=== PATIENT | female | born 1950 | race Caucasian/White ===

== ENCOUNTER 2019-02-25 07:45 | Inpatient (IN) | payer OTHER ==
[2019-02-25 08:19] LABS: Arterial Blood Carboxyhemoglob 1.5 % (0-1.5); Blood O2 Saturation 99.3 % (92-98.5)
[2019-02-25] MEDS ORDERED: D5.45NS W/KCL 20MEQ 1,000 ML IV ONE (08:22)
[2019-02-25] MEDS ORDERED: PROPOFOL 1,000 MG/100 ML VIAL IV ONE (08:22)
[2019-02-25] MEDS ORDERED: LEVALBUTEROL 1.25 MG/3 ML NEB ONE (08:24)
[2019-02-25 08:33] LABS: Absolute Lymphocytes (CBC) 2.3 K/uL (0.7-4.9); Absolute Neutrophil 11.2 K/uL (1.8-8.0); Basophils % 0.7 % (0-1.3); Eosinophils % 2.5 % (0-4.4); Hematocrit 35.2 % (36.0-45.0); Lymphocytes % 15.5 % (15.3-44.8); MPV 9.6 fL (7.6-11.3); Monocytes % 6.7 % (3.3-12.3); RBC Red Blood Cell Count 3.68 M/uL (3.86-4.86)
[2019-02-25 08:48] LABS: BUN Blood Urea Nitrogen 15 mg/dL (7-18); Glucose Level 126 mg/dL (74-106); NT PRO-BNP 2119 pg/mL (<125); Potassium 3.7 mmol/L (3.5-5.1); Sodium Level 143 mmol/L (136-145); Troponin (Emerg Dept Use Only) 0.04 ng/mL (0.0-0.045)
[2019-02-25 08:49] LABS: Bicarbonate 43 mmol/L (21-32)
--- NOTE | 2019-02-25 08:53 | RAD REPORT ---
EXAM DESCRIPTION: RAD - Chest Single View - 02/25/2019 8:26 am CLINICAL HISTORY: check tube placement Chest pain. COMPARISON: Chest Pa And Lat (2 Views) dated 01/12/2017; CHEST PA AND LAT 2 VIEW dated 07/29/2015; CONI ST PA AND LAT 2 VIEW dated 07/15/2014; CHEST SINGLE VIEW dated 05/16/2014 FINDINGS: Portable technique limits examination quality. Tip of the ET tube is above the pallavi. Enteric tube descends into stomach. Moderate bilateral pulmon rinku opacities are present likely representing pulmonary edema or pneumonia. The heart is mildly enlar ged in size. Small pleural effusions.
[2019-02-25 09:04] LABS: Protime INR 0.89
[2019-02-25] MEDS ORDERED: METHYLPREDNISOLONE 125 MG INJ ONE (09:22)
[2019-02-25] MEDS ORDERED: CEFTRIAXONE/SWI 1gm 1 GM/10 ML SYR ONE (09:22)
--- NOTE | 2019-02-25 09:43 | EDPHYS ---
Physician Documentation [facility] Name: Carmencita Meeks Age: 68 yrs Sex: Female : 1950 Arrival Date: 02/25/2019 Time: 07:54 Bed 3 Private MD: ED Physician Tam Bauman HPI: 02/25 08:07 This 68 yrs old Female presents to ER via Unassigned with complaints of rn trouble breathing. 08:07 The patient has shortness of breath at rest. Onset: The symptoms/episode began/occurred rn last night. Duration: The symptoms are continuous. The patient's shortness of breath is aggravated by nothing, is alleviated by nothing. Associated signs and symptoms:. Pt intubated so history from EMS and , reports a few days of worsening sob, cough, breathing treatments not helping, became more obtunded this AM, EMS arrived, unresponsive, and intubated at scene, given versed/fentanyl. also states blood sugar dropping over night, down to 57, but now normal.. Historical: - Allergies: 09:07 Ciprofloxacin; hb 09:07 Ciprofloxacin HCl; hb 09:07 Codeine; hb 09:07 TETRACYCLINES; hb - Home Meds: 10:02 HOME 02 2LNC [Active]; nicotine 14 mg/24 hr TD pt24 1 patch once daily [Active]; hb Brovana 15 mcg/2 mL inhalation nebu 2 mL 2 times per day [Active]; Lonhal 25mcg BID [Active]; ipratropium-albuterol 0.5 mg-3 mg(2.5 mg base)/3 mL Inhl nebu 3 mL 4 times per day [Active]; Ventolin Rotahaler/Rotacaps Inhl [Active]; furosemide 40 mg Oral tab 1 tab once daily [Active]; Acetazolamide Oral [Active]; duloxetine 60 mg oral cpDR 1 cap once daily [Active]; Tresiba FlexTouch U-100 100 unit/mL (3 mL) subcutaneous inpn [Active]; Novolog 100 unit/mL Sub-Q soln before meals [Active]; promethazine 25 mg Oral tab as needed [Active]; MS Contin 60 mg Oral TbER 1 tab every 8 hours [Active]; baclofen 10 mg Oral tab nightly [Active]; Amitiza 24 mcg oral cap nightly [Active]; Simbrinza 1-0.2 % ophthalmic drps 1 drop twice a day [Active]; Restasis 0.05 % ophthalmic dpet 1 drop 2 times per day [Active]; Prolia 60 mg/mL subcutaneous syrg 1 mL every 6 mo [Active]; Q-Tussin 100 mg/5 mL oral liqd [Active]; Citracal Oral [Active]; Afrin Sinus (oxymetazoline) 0.05 % nasal spry [Active]; Flonase 50 mcg/actuation Nasal spsn [Active]; methylprednisolone 8 mg Oral tab 1 tab once daily [Active]; - PMHx: 10:03 Diabetes - IDDM; COPD; hb - PSHx: 10:02 BUNION - BILATERAL; CATARACTS; Hysterectomy; Appendectomy; Cholecystectomy; hb 11:55 Mastectomy; hb - Immunization history:: Adult Immunizations up to date. - Family history:: not pertinent. - Social history:: Smoking status: Patient/guardian denies using tobacco. - Ebola Screening: : No symptoms or risks identified at this time. - Hospitalizations: : No recent hospitalization is reported. ROS: 08:07 Unable to obtain ROS due to obtunded state, patient is on ventilator. rn Exam: 08:07 Constitutional: Thin female, intubated, + gag reflex and minimally responsive to rn painful stimuli. Head/Face: Normocephalic, atraumatic. ENT: dry MM, no oral swelling, intubated Cardiovascular: + loud systolic murmur, regular rhythm and rate Respiratory: Coarse bilateral breath sounds, with exp wheezing Abdomen/GI: soft, non-distended MS/ Extremity: Pulses equal, no cyanosis. Neurovascular intact. Full, normal range of motion. Equal circumference. Neuro: GCS3, intubated 09:37 ECG was reviewed by the Attending Physician. rn Vital Signs: 07:56 BP 180 / 83; Pulse 90; Pulse Ox 80% on 100% FiO2 ETT vent; hb 08:30 BP 140 / 106; Pulse 81; Resp 18; Pulse Ox 100% on 50% FiO2 ETT vent; hb 08:55 Weight 45.36 kg (R); hb 09:26 Temp 96.9(C); hb 10:02 BP 128 / 73; Pulse 78 MON; Resp 18; Temp 96.5(C); Pulse Ox 100% on 50% FiO2 ETT vent; sg 10:45 BP 132 / 62; Pulse 80; Resp 18; Pulse Ox 100% on 50% FiO2 ETT vent; hb 11:31 BP 131 / 55; Pulse 83 MON; Resp 14; Temp 98.8(C); Pulse Ox 100% on 45% FiO2 ETT vent; sg 12:06 BP 107 / 71; Pulse 97; Resp 18; Temp 99.6(C); Pulse Ox 100% on 50% FiO2 ETT vent; hb Ventilator: 09:30 Fi02: 50%; Rate: 18min; T.V.: 450ml; Peep: 5cm; ET tube: 6.5 mm (Oral); hb MDM: 08:03 Patient medically screened. rn 09:40 Differential diagnosis: Chronic Obstructive Pulmonary Disease Myocardial Infarction rn pneumonia, Pneumothorax pulmonary edema, Sepsis. Data reviewed: vital signs, nurses notes, lab test result(s), EKG, radiologic studies, plain films, and as a result, I will admit patient. Counseling: I had a detailed discussion with the patient and/or guardian regarding: the historical points, exam findings, and any diagnostic results supporting the discharge/admit diagnosis, lab results, radiology results, the need for further work-up and treatment in the hospital. Response to treatment: the patient's symptoms have mildly improved after treatment. Admission orders: after a detailed discussion of the patient's condition and case, the admit orders are written by me. ED course: Admitted to Lisette Steiner for respiratory failure and possible pneumonia.. 02/25 08:04 Order name: Blood Culture Adult (2) rn 02/25 08:04 Order name: BMP; Complete Time: 08:50 rn 02/25 08:04 Order name: CBC with Diff; Complete Time: 08:50 rn 02/25 08:04 Order name: NT PRO-BNP; Complete Time: 08:50 rn 02/25 08:04 Order name: PT-INR; Complete Time: 09:38 rn 02/25 08:04 Order name: Ptt, Activated; Complete Time: 09:38 rn 02/25 08:03 Order name: CXR XRAY; Complete Time: 08:58 bd 02/25 08:04 Order name: Troponin (emerg Dept Use Only); Complete Time: 08:50 rn 02/25 08:04 Order name: ABG; Complete Time: 11:04 rn 02/25 08:06 Order name: CT Head Brain wo Cont; Complete Time: 09:56 rn 02/25 08:07 Order name: Glucose, Ancillary Testing; Complete Time: 08:50 EDMS 02/25 08:04 Order name: EKG; Complete Time: 08:05 rn 02/25 08:04 Order name: Cardiac monitoring; Complete Time: 08:30 rn 02/25 08:04 Order name: EKG - Nurse/Tech; Complete Time: 08:30 rn 02/25 08:04 Order name: IV Saline Lock; Complete Time: 08:30 rn 02/25 08:04 Order name: Labs collected and sent; Complete Time: 08:30 rn 02/25 08:04 Order name: O2 Per Protocol; Complete Time: 08:30 rn 02/25 08:04 Order name: O2 Sat Monitoring; Complete Time: 08:30 rn EC:37 Rate is 100 beats/min. Rhythm is irregularly irregular. Right axis deviation noted. QRS rn is positive in lead aVF and negative in lead I. QRS interval is normal. QT interval is normal. No Q waves. T waves are Normal. No ST changes noted. Clinical impression: Atrial Fibrillation. Interpreted by me. Reviewed by me. Administered Medications: 08:05 Drug: Versed 3 mg Route: IM; Site: left vastus lateralis; hb 08:40 Follow up: Response: No adverse reaction hb 08:07 Drug: Rocuronium 50 mg Route: IVP; Site: right antecubital; hb 08:40 Follow up: Response: No adverse reaction hb 08:12 Drug: Propofol 5 mcg/kg/min Route: IV; Rate: calculated rate; Site: right antecubital; hb 12:30 Follow up: Response: No adverse reaction; IV Status: Infusion continued upon admission; hb IV Intake: 21ml 08:20 Drug: D5-1/2 NS with KCl 20 mEq/L 1000 ml Route: IV; Rate: 100 ml/hr; Site: right hand; hb 12:30 Follow up: Response: No adverse reaction; IV Status: Infusion continued upon admission; hb IV Intake: 420ml 08:20 Drug: Xopenex (3) 1.25 mg Route: Inhalation; hb 09:10 Follow up: Response: No adverse reaction hb 09:20 Drug: SOLU-Medrol 125 mg Route: IVP; Site: right antecubital; hb 10:15 Follow up: Response: No adverse reaction hb 09:46 Drug: Rocephin - (cefTRIAXone) 1 grams Route: IVPB; Infused Over: 30 mins; Site: right hb hand; 10:30 Follow up: Response: No adverse reaction; IV Status: Completed infusion; IV Intake: 50mlhb 10:12 Drug: AZITHromycin 500 mg Route: IVPB; Infused Over: 1 hrs; Site: right hand; sg 11:15 Follow up: Response: No adverse reaction; IV Status: Completed infusion; IV Intake: hb 250ml Disposition: 09:40 Critical Care:. rn Disposition: 02/25/19 09:42 Hospitalization ordered by Maged Steiner for Inpatient Admission. Preliminary diagnosis are Acute respiratory failure with hypercapnia, Pneumonia, Chronic obstructive pulmonary disease with (acute) exacerbation, Hypothermia. - Bed requested for Intensive Care Unit. - Status is Inpatient Admission. hb - Condition is Fair. - Problem is new. - Symptoms have improved. UTI on Admission? No Critical care time excluding procedures: :40 Critical care time: Bedside Care: 25 minutes, Consultation: 3 minutes, Family rn Intervention: 5 minutes. Total time: 33 minutes Signatures: Dispatcher [employer] EDKY Panchito Cleveland RN RN Tam Bauman MD MD rn Smirch, Shelby, RN RN Monet Chambers RN RN Corrections: (The following items were deleted from the chart) 08:27 08:05 Chest Single View+RAD.RAD.BRZ ordered. [facility] EDKY 09:42 09:42 Hospitalization Ordered by Maged Steiner MD for Inpatient Admission. Preliminary rn diagnosis is Acute respiratory failure with hypercapnia; Pneumonia; Chronic obstructive pulmonary disease with (acute) exacerbation. Bed requested for Intensive Care Unit. Status is Inpatient Admission. Condition is Fair. Problem is new. Symptoms have improved. UTI on Admission? No. rn 11:58 09:42 02/25/2019 09:42 Hospitalization Ordered by Maged Steiner MD for Inpatient ss Admission. Preliminary diagnosis is Acute respiratory failure with hypercapnia; Pneumonia; Chronic obstructive pulmonary disease with (acute) exacerbation; Hypothermia. Bed requested for Intensive Care Unit. Status is Inpatient Admission. Condition is Fair. Problem is new. Symptoms have improved. UTI on Admission? No. rn 12:43 11:58 02/25/2019 09:42 Hospitalization Ordered by Maged Steiner MD for Inpatient Admission. Preliminary diagnosis is Acute respiratory failure with hypercapnia; Pneumonia; Chronic obstructive pulmonary disease with (acute) exacerbation; Hypothermia. Bed requested for Intensive Care Unit. Status is Inpatient Admission. Condition is Fair. Problem is new. Symptoms have improved. UTI on Admission? No. ss
--- NOTE | 2019-02-25 09:43 | ER ---
Nurse's Notes [facility] Name: Carmencita Meeks Age: 68 yrs Sex: Female : 1950 Arrival Date: 02/25/2019 Time: 07:54 Bed 3 Private MD: Diagnosis: Acute respiratory failure with hypercapnia;Pneumonia;Chronic obstructive pulmonary disease with (acute) exacerbation;Hypothermia Presentation: 02/25 07:56 Presenting complaint: EMS states: called out difficulty breathing, on scene pt hb was lethargic, R40s, SpO2 70s, ETCO2 100. PIV 22 right hand, RSI: Fentanyl 100 mcg, Versed 4 mg, ETT 6.5, 21 at the lip. Transition of care: patient was not received from another setting of care. Onset of symptoms was February 25, 2019. Risk Assessment: Do you want to hurt yourself or someone else? Patient reports no desire to harm self or others. 07:56 Method Of Arrival: EMS: [facility] hb 07:56 Acuity: MARTHA 1 hb 08:00 Care prior to arrival: Assisted ventilation, Oral intubation, OGT 12F. hb 08:15 Initial Sepsis Screen: Does the patient meet any 2 criteria? No. Patient's initial hb sepsis screen is negative. Does the patient have a suspected source of infection? Yes: Productive cough/pneumonia. Historical: - Allergies: 09:07 Ciprofloxacin; hb 09:07 Ciprofloxacin HCl; hb 09:07 Codeine; hb 09:07 TETRACYCLINES; hb - Home Meds: 10:02 HOME 02 2LNC [Active]; nicotine 14 mg/24 hr TD pt24 1 patch once daily [Active]; hb Brovana 15 mcg/2 mL inhalation nebu 2 mL 2 times per day [Active]; Lonhal 25mcg BID [Active]; ipratropium-albuterol 0.5 mg-3 mg(2.5 mg base)/3 mL Inhl nebu 3 mL 4 times per day [Active]; Ventolin Rotahaler/Rotacaps Inhl [Active]; furosemide 40 mg Oral tab 1 tab once daily [Active]; Acetazolamide Oral [Active]; duloxetine 60 mg oral cpDR 1 cap once daily [Active]; Tresiba FlexTouch U-100 100 unit/mL (3 mL) subcutaneous inpn [Active]; Novolog 100 unit/mL Sub-Q soln before meals [Active]; promethazine 25 mg Oral tab as needed [Active]; MS Contin 60 mg Oral TbER 1 tab every 8 hours [Active]; baclofen 10 mg Oral tab nightly [Active]; Amitiza 24 mcg oral cap nightly [Active]; Simbrinza 1-0.2 % ophthalmic drps 1 drop twice a day [Active]; Restasis 0.05 % ophthalmic dpet 1 drop 2 times per day [Active]; Prolia 60 mg/mL subcutaneous syrg 1 mL every 6 mo [Active]; Q-Tussin 100 mg/5 mL oral liqd [Active]; Citracal Oral [Active]; Afrin Sinus (oxymetazoline) 0.05 % nasal spry [Active]; Flonase 50 mcg/actuation Nasal spsn [Active]; methylprednisolone 8 mg Oral tab 1 tab once daily [Active]; - PMHx: 10:03 Diabetes - IDDM; COPD; hb - PSHx: 10:02 BUNION - BILATERAL; CATARACTS; Hysterectomy; Appendectomy; Cholecystectomy; hb 11:55 Mastectomy; hb - Immunization history:: Adult Immunizations up to date. - Family history:: not pertinent. - Social history:: Smoking status: Patient/guardian denies using tobacco. - Ebola Screening: : No symptoms or risks identified at this time. - Hospitalizations: : No recent hospitalization is reported. Screenin:56 Abuse screen: NO S/S ABUSE. Nutritional screening: No deficits noted. Tuberculosis hb screening: No symptoms or risk factors identified. Fall Risk Total Barrera Fall Scale indicates High Risk Score (45 or more points). Fall prevention measures have been instituted. Side Rails Up X 2 Frequent Obs/Assessments Occuring Family Present and informed to notify staff if the need to leave the bedside As available patient and family educated on Fall Prevention Program and Strategies. Assessment: 08:05 General: Appears ill, Behavior is unresponsive. Pain: Unable to use pain scale. FLACC hb scale score is 0 out of 10. Patient is intubated. Neuro: Level of Consciousness is unresponsive, Oriented to none. Cardiovascular: Heart tones S1 S2 present Capillary refill < 3 seconds Patient's skin is warm and dry. Respiratory: Airway via oral intubation Breath sounds are coarse bilaterally. Breath sounds with wheezes bilaterally. GI: Abdomen is non-distended, Oral gastric tube in place, clamped. Bowel sounds present X 4 quads. : No signs and/or symptoms were reported regarding the genitourinary system. EENT: No signs and/or symptoms were reported regarding the EENT system. Derm: Skin is intact, is healthy with good turgor, Skin is diaphoretic, Skin is pale, Skin temperature is cool. Musculoskeletal: No signs and/or symptoms reported regarding the musculoskeletal system. 09:00 Reassessment: No changes from previously documented assessment. Patient and/or family hb updated on plan of care and expected duration. Pain level reassessed. PT INTUBATED AND SEDATED, VSS, LABS PENDING AT THIS TIME. REMAINS AT BEDSIDE. 09:49 Reassessment: Pt returned from CT with nurse, RT, and radiology scheduler. hb 10:00 Reassessment: No changes from previously documented assessment. PROPOFOL CONTINUES, hb AT BEDSIDE. 11:00 Reassessment: No changes from previously documented assessment. PT REMAINS INTUBATED hb AND SEDATED, AT BEDSIDE. ADMISSION ORDERED, AWAITING ROOM ASSIGNMENT AT THIS TIME. 12:00 Reassessment: No changes from previously documented assessment. Patient and/or family hb updated on plan of care and expected duration. Pain level reassessed. Vital Signs: 07:56 BP 180 / 83; Pulse 90; Pulse Ox 80% on 100% FiO2 ETT vent; hb 08:30 BP 140 / 106; Pulse 81; Resp 18; Pulse Ox 100% on 50% FiO2 ETT vent; hb 08:55 Weight 45.36 kg (R); hb 09:26 Temp 96.9(C); hb 10:02 BP 128 / 73; Pulse 78 MON; Resp 18; Temp 96.5(C); Pulse Ox 100% on 50% FiO2 ETT vent; sg 10:45 BP 132 / 62; Pulse 80; Resp 18; Pulse Ox 100% on 50% FiO2 ETT vent; hb 11:31 BP 131 / 55; Pulse 83 MON; Resp 14; Temp 98.8(C); Pulse Ox 100% on 45% FiO2 ETT vent; sg 12:06 BP 107 / 71; Pulse 97; Resp 18; Temp 99.6(C); Pulse Ox 100% on 50% FiO2 ETT vent; hb ED Course: 07:54 Patient arrived in ED. em1 08:00 Monet Chambers, AHMET is Primary Nurse. hb 08:03 Tam Bauman MD is Attending Physician. rn 08:05 Missed attempt(s): 22 gauge in right forearm. Bleeding controlled, band aid applied, dh3 catheter tip intact. 08:07 Inserted saline lock: 22 gauge in right hand, using aseptic technique. Blood collected. dh3 08:15 Patient has correct armband on for positive identification. Placed in gown. Bed in low hb position. Side rails up X2. 08:15 ekg monitor tech on. Pulse ox on. NIBP on. hb 08:16 Radiology exam delayed due to pt not ready. mw3 08:21 Initial lab(s) drawn, by ED staff, sent to lab. First set of blood cultures drawn by ED 3 staff. Inserted saline lock: 20 gauge in right antecubital area, using aseptic technique. Blood collected. by AHMET Healy. 08:27 CXR XRAY In Process Unspecified. EDMS 08:40 Second set of blood cultures drawn by ED staff. dh3 09:02 Triage completed. hb 09:02 Arm band placed on. hb 09:10 Ureña cath inserted, using sterile technique, 16 Fr., by tx, balloon inflated, to gravity drainage, urine specimen collected. returned clear yellow urine. Patient tolerated well. 09:42 Maged Steiner MD is Hospitalizing Provider. rn 09:43 CT completed. Patient tolerated procedure well. Patient moved to CT via stretcher. sj Patient moved back from CT. 09:44 CT Head Brain wo Cont In Process Unspecified. EDMS 12:42 No provider procedures requiring assistance completed. Patient admitted, IV remains in hb place. Administered Medications: 08:05 Drug: Versed 3 mg Route: IM; Site: left vastus lateralis; hb 08:40 Follow up: Response: No adverse reaction hb 08:07 Drug: Rocuronium 50 mg Route: IVP; Site: right antecubital; hb 08:40 Follow up: Response: No adverse reaction hb 08:12 Drug: Propofol 5 mcg/kg/min Route: IV; Rate: calculated rate; Site: right antecubital; hb 12:30 Follow up: Response: No adverse reaction; IV Status: Infusion continued upon admission; hb IV Intake: 21ml 08:20 Drug: D5-1/2 NS with KCl 20 mEq/L 1000 ml Route: IV; Rate: 100 ml/hr; Site: right hand; hb 12:30 Follow up: Response: No adverse reaction; IV Status: Infusion continued upon admission; hb IV Intake: 420ml 08:20 Drug: Xopenex (3) 1.25 mg Route: Inhalation; hb 09:10 Follow up: Response: No adverse reaction hb 09:20 Drug: SOLU-Medrol 125 mg Route: IVP; Site: right antecubital; hb 10:15 Follow up: Response: No adverse reaction hb 09:46 Drug: Rocephin - (cefTRIAXone) 1 grams Route: IVPB; Infused Over: 30 mins; Site: right hb hand; 10:30 Follow up: Response: No adverse reaction; IV Status: Completed infusion; IV Intake: 50mlhb 10:12 Drug: AZITHromycin 500 mg Route: IVPB; Infused Over: 1 hrs; Site: right hand; sg 11:15 Follow up: Response: No adverse reaction; IV Status: Completed infusion; IV Intake: hb 250ml Intake: 10:30 IV: 50ml; Total: 50ml. hb 11:15 IV: 250ml; Total: 300ml. hb 12:30 IV: 420ml; Total: 720ml. hb 12:30 IV: 21ml; Total: 741ml. hb Output: 09:05 Stool: 1 (Formed Stool) ; Total: 0ml. hb 09:15 Urine: 325ml (Ureña); Total: 325ml. hb Ventilator: 09:30 Fi02: 50%; Rate: 18min; T.V.: 450ml; Peep: 5cm; ET tube: 6.5 mm (Oral); hb Outcome: 09:42 Decision to Hospitalize by Provider. rn 12:42 Admitted to ICU accompanied by nurse, family with patient, via stretcher, room ICU 8, hb on monitor, with chart, Report called to JG LEO 12:42 Condition: stable 12:42 Instructed on the need for admit. 12:43 Patient left the ED. hb Signatures: Dispatcher [employer] EDMS Panchito Cleveland RN RN sg Jones, Susan sj Nieto, Roman, MD MD rn Martinez, Eric em1 Monet Chambers RN RN Paloma Pacheco 3 Paulina Goldsmith mw3 Corrections: (The following items were deleted from the chart) 09:26 Temp 95.9F Catheter; hb hb
--- NOTE | 2019-02-25 09:52 | RAD REPORT ---
EXAM DESCRIPTION: CT - Head Brain Wo Cont - 02/25/2019 9:45 am CLINICAL HISTORY: AMS, intubated, found obtunded Drowsiness, headache COMPARISON: No comparisons TECHNIQUE: All CT scans are performed using dose optimization technique as appropriate and may inclu de automated exposure control or mA/KV adjustment according to patient size. FINDINGS: No intracranial hemorrhage, hydrocephalus or extra-axial fluid collection.No areas of brai n edema or evidence of midline shift. The paranasal sinuses and mastoids are clear. The calvarium is intact. IMPRESSION: No acute intracranial abnormality.
[2019-02-25] MEDS ORDERED: AZITHROMYCIN IV 500 MG in NA CHLORIDE 0.9% 250 ML IVPB ONE (10:00)
--- NOTE | 2019-02-25 11:55 | EKG ---
Test Date: 2019-02-25 Test Time: 07:56:11 Booth Supervisor: KAE MEASUREMENT RESULTS: Intervals: Rate: 100 NV: 158 QRSD: 98 QT: 370 QTc: 477 [place]: P: 76 NV: 158 QRS: 106 T: 75 INTERPRETIVE STATEMENTS: Normal sinus rhythm Rightward axis ST abnormality, possible digitalis effect Abnormal ECG Compared to ECG 05/15/2014 07:05:25 Right-axis deviation now present ST (T wave) deviation now present Sinus tachycardia no longer present Electronically Signed On 02-25-19 11:54:40 CDT by Jarred Blandon
[2019-02-25] MEDS ORDERED: ONDANSETRON 4 MG/2 ML VIAL IV PRN (12:58)
[2019-02-25] MEDS: D5.45NS W/KCL 20MEQ 20 MEQ/1,000 ML BAG IV SCH ×2 (12:58→20:08)
[2019-02-25] MEDS: METHYLPREDNISOLONE 40 MG INJ IV SCH ×2 (14:36→18:31)
[2019-02-25] MEDS ORDERED: ACETAMINOPHEN 650MG/RECT SUPP PR PRN (14:42)
[2019-02-25] MEDS: IPRATROPIUM BROM 0.5MG/2.5ML NEB PRN ×2 (15:40→22:00)
[2019-02-25] MEDS: ALBUTEROL 2.5 MG/3 ML NEB SOL NEB PRN (15:40)
[2019-02-25] MEDS ORDERED: CLONIDINE 0.2 MG/PATCH TD SCH (16:15)
[2019-02-25] MEDS: METOPROLOL TARTRATE 5 MG/5 ML INJ IV SCH ×2 (16:27→22:16)
[2019-02-25] MEDS ORDERED: Magnesium Sulfate 2gm IVPB 2 G/50 ML BAG IV ONE ×3 (17:55→20:40)
--- NOTE | 2019-02-25 17:57 | P.HP ---
Certification for Inpatient Patient admitted to: Inpatient With expected LOS: >2 Midnights Practitioner: I am a practitioner with admitting privileges, knowledge of patient current condition, hospital course, and medical plan of care. Services: Services provided to patient in accordance with Admission requirements found in Title 42 Section 412.3 of the Code of Federal Regulations Patient History Date of Service: 02/25/19 Reason for admission: RESPIRATORY FAILURE History of Present Illness: NIGEL IS AN END STAGE COPD PATIENT WHO WAS BARELY SURVIVING WITH OXYGEN AND REPEATED USE OF STEROIDS AND ANTIBIOTICS FOR RECURRENT BRONCHITIS AND COPD EXACERBATION, COMES AFTER BRIEF DISTRESS AND OBTUNDATION, INTUBATED IN THE FIELD BROUGHT TO ER. ABOUT 3 MTHS AGO I HAD RECOMMENDED HOSPICE TO HER THROUGH BUT HE SAID NO THAT TIME THAT SHE IS NOT READY FOR IT. Allergies tetracycline [Tetracycline] Allergy (Verified 08/25/16 13:32) Rash ciprofloxacin HCl [From Cipro] Adverse Reaction (Intermediate, Verified 13:32) Rash Home Medications: Acetaminophen [Tylenol] 500 mg PO TID 02/25/19 Albuterol Inhaler [Ventolin Inhaler*] 2 puff IH QIDP PRN 02/25/19 Arformoterol Tartrate [Brovana] 1 dose IH BID 02/25/19 Baclofen 10 mg PO BEDTIME 02/25/19 Brinzolamide/Brimonidine Tart [Simbrinza 1%-0.2% Eye Drops] 1 gtt OPTH BID 02/25 Calcium Carb & Citrate/Vit D3 [Citracal + D ER Tablet] 1 tab PO DAILY 02/25/19 Cyclosporine [Restasis] 1 gtt OPTH BID 02/25/19 Duloxetine HCl 60 mg PO DAILY 02/25/19 Fluticasone Furoate [Flonase Sensimist] 1 spray IH DAILYPRN PRN 02/25/19 Furosemide 40 mg PO DAILY 02/25/19 Glycopyrrolate/Neb.accessories [Lonhala Magnair 25 Mcg Refill] 1 dose IH BID Guaifenesin [Tussin] 5 ml PO Q4HP PRN 02/25/19 Insulin Degludec [Tresiba Flextouch U-100] 8 units SQ DAILY 02/25/19 Ipratropium/Albuterol Sulfate [Iprat-Albut 0.5-3(2.5) mg/3 ml] 1 amp IH QIDP PRN 02/25/19 Lubiprostone [Amitiza*] 1 cap PO BEDTIME 02/25/19 Lubiprostone [Amitiza] 1 cap PO DAILY 02/25/19 Morphine *Extended Release* [MS Contin*] 60 mg PO TID 02/25/19 Nicotine [Nicotine Patch] 14 mg TD DAILY 02/25/19 Oxymetazoline HCl [Afrin] 2 spr IH PRN PRN 02/25/19 Prolia 60 mg IM SEECOM 02/25/19 Promethazine HCl 25 mg PO QIDP PRN 02/25/19 acetaZOLAMIDE [Diamox*] 62.5 mg PO DAILY 02/25/19 - Past Medical/Surgical History Has patient received pneumonia vaccine in the past: Yes Diabetic: Yes -: HTN, hyperlipidemia, CHF -: TIA during SX -: PNA, COPD -: Breast CA -: R lumpectomy -: appy -: hysterectomy -: cartoid artery SX -: L knee SX - Social History Smoking Status: Smoker current status UNK Alcohol use: No CD- Drugs: No Caffeine use: No Place of Residence: Home Review of Systems is unable to be obtained Physical Examination - Vital Signs Temperature: 101.9 F Blood Pressure: 158/60 Pulse: 84 Respirations: 18 Pulse Ox (%): 100 - Physical Exam General: Cachectic, Severe distress, Unresponsive (INTUBATED AND SEDATED.) Neck: Supple, Without JVD or thyroid abnormality Respiratory: Diminished, Rhonchi/gurgles Cardiovascular: Normal S1 S2 - Studies Laboratory Data (last 24 hrs) 02/25/19 08:21: PT 10.6, INR 0.89, APTT 30.5 02/25/19 08:21: WBC 15.0 H, Hgb 11.3 L, Hct 35.2 L, Plt Count 273 02/25/19 08:07: Sodium 143, Potassium 3.7, BUN 15, Creatinine 0.64, Glucose 126 H Assessment and Plan - Problems (Diagnosis) (1) End stage COPD Current Visit: Yes Status: Chronic Plan: RESPIRATORY FAILURE INTUBATED. SHE IS ON TWO ABX. AND IV STEROIDS. (2) Pneumonia Current Visit: Yes Status: Acute Plan: TWO IV ABX. SHE MAY NOT SURVIVE. SHE WAS FRAIL AND DYPSNEIC AT REST BEFORE THIS HAPPENED. SHE WAS STILL SMOKING AND WANTED TO CONTINUE DAMAGE IS IRREPARABLE NOW. (3) Diabetes Current Visit: Yes Status: Chronic Plan: FS COVERAGE. Qualifiers: Diabetes mellitus type: type 2 (4) Torsades de pointes Current Visit: Yes Status: Acute Plan: STAG MAGNESIUM IV GIVEN. MAG LEVEL THEY HAD TO DO CPR JUST NOW TO REVIVE HER. I HAD NURSE CALL THE FOR DNR STATUS BUT HE WANTS FULL CODE FOR NOW. - Advance Directives Does patient have a Living Will: No Does patient have a Durable POA for Healthcare: No
[2019-02-25] MEDS ORDERED: ENOXAPARIN 40 MG/0.4 ML SQ SCH (18:00)
[2019-02-25 19:09] LABS: MPV 9.7 fL (7.6-11.3)
[2019-02-25] MEDS ORDERED: D50W 25 GM/50 ML SYRINGE IV PRN (19:11)
[2019-02-25] MEDS ORDERED: GLUCAGON 1 MG/VIAL IM PRN (19:11)
[2019-02-25 19:18] LABS: Platelet Estimate ADEQ
[2019-02-25] MEDS ORDERED: MIDAZOLAM HCL 2 MG/2 ML INJ IV PRN (19:19)
[2019-02-25] MEDS ORDERED: NA CHLORIDE 0.9% 250 ML IV PRN (19:19)
[2019-02-25] MEDS ORDERED: HALOPERIDOL LACT 5 MG/ML INJ IV PRN (19:19)
[2019-02-25] MEDS: FAMOTIDINE 20 MG/2 ML VIAL IV SCH (20:08)
[2019-02-25] MEDS ORDERED: CEFTRIAXONE/SWI 1gm 1 GM/10 ML SYR IVP SCH (21:00)
[2019-02-25] MEDS ORDERED: Meropenem 1000 MG/VIAL IV SCH (21:16)
[2019-02-25] MEDS ORDERED: Pharmacy Consult 1 EA XX PRN (21:17)
[2019-02-25] MEDS ORDERED: VANCOMYCIN 1 GM in NA CHLORIDE 0.9% 250 ML IVPB ONE (22:00)
[2019-02-25 22:17] LABS: BUN Blood Urea Nitrogen 17 mg/dL (7-18); Bicarbonate 38 mmol/L (21-32); Glucose Level 299 mg/dL (74-106); Sodium Level 138 mmol/L (136-145)
[2019-02-25 22:21] LABS: Magnesium 4.2 mg/dL (1.8-2.4); Potassium 2.8 mmol/L (3.5-5.1)
[2019-02-25] MEDS ORDERED: Meropenem 500 MG/100 ML BAG ONE (22:28)
[2019-02-25] MEDS: KCL 20 MEQ/100 mL IVPB 20 MEQ/100 ML BAG IV SCH (22:45)
[2019-02-25] MEDS ORDERED: VANCOMYCIN 1 GM/VIAL ONE (22:57)
[2019-02-25] MEDS ORDERED: NA CHLORIDE 0.9% 250 ML ONE (22:58)
[2019-02-26] MEDS: INSULIN -REGULAR HUMAN 50 UNIT/0.5 ML ML SQ SCH ×4 (00:18→18:00)
[2019-02-26] MEDS: METHYLPREDNISOLONE 40 MG INJ IV SCH ×3 (00:19→17:05)
[2019-02-26] MEDS: KCL 20 MEQ/100 mL IVPB 20 MEQ/100 ML BAG IV SCH ×2 (00:41→02:41)
[2019-02-26] MEDS: METOPROLOL TARTRATE 5 MG/5 ML INJ IV SCH ×6 (01:39→22:32)
[2019-02-26] MEDS ORDERED: AMIODARONE HCL 150 MG in D5W 100 ML IV STA (01:58)
[2019-02-26] MEDS ORDERED: AMIODARONE HCL 900 MG in Dextrose 5%-Water 482 ML IV SCH (02:00)
[2019-02-26] MEDS ORDERED: AMIODARONE HCL 150 MG/3 ML INJ IV ONE ×2 (02:16→02:27)
[2019-02-26] MEDS ORDERED: D5W 100 ML IV ONE (02:18)
--- NOTE | 2019-02-26 02:38 | CON ---
History Of Present Illness: Mrs. Meeks is 68. She came to the hospital with a chief complaint of shortness of breath. She is a patient with end-stage COPD, barely survives at home with oxygen, repeated use of steroids, antibiotics , bronchodilator treatments. She seemed to get worse, called EMS. She was intubated in the field because she looked so ill, and at this point, she has had several arrests there, apparently torsades de pointes type arrests. The rhythm strips are very consistent with that. She is getting azithromycin, and I think that needs to be discontinued. We do not want to give an antiarrhythmic drug. We should check an echocardiogram tomorrow, give her large amounts of magnesium, keep her levels up above 3 if possible, make sure her electrolytes are corrected, get an echocardiogram tomorrow. Medications: The patient's home medications have been cyclosporine, Simbrinza, Amitiza, baclofen, morphine, promethazine, insulin, duloxetine, acetazolamide, Lasix, albuterol, ipratropium, inhalers, nicotine patch, Brovana, calcium carbonate with vitamin D, guaifenesin, acetaminophen, Afrin, and fluticasone. Physical Examination: General: The patient is obtunded. She is on a propofol drip. She is intubated. Vital Signs: Her heart rate is 130. It is sinus tach. Lungs: Breath sounds are very abnormal. They are all bronchial. No vesicular breath sounds. No wheezing. No crackles. HEART: Exam is difficult to hear because of the COPD and because of ventilator noises, but I do not appreciate a murmur. Extremities: Mild edema. Impression: Our best hope to control the torsades is avoid any drugs that prolong the QTs such as antifungal agents, erythromycin and its derivatives such as azithromycin, give her magnesium. I would not recommend amiodarone in this situation, unless Torsades/VF recurs when electrolytes are normal . SANCHEZ/LENY Voice ID: [id number] Report ID: [id number] MTDHenna
[2019-02-26] MEDS: PROPOFOL 1,000 MG/100 ML VIAL IV PRN ×2 (02:41→17:05)
[2019-02-26 05:32] LABS: Absolute Lymphocytes (CBC) 0.7 K/uL (0.7-4.9); Absolute Monocytes 0.5 K/uL (0.1-1.3); Absolute Neutrophil 12.6 K/uL (1.8-8.0); Basophils % 0.3 % (0-1.3); Hematocrit 29.6 % (36.0-45.0); MPV 10.2 fL (7.6-11.3); Monocytes % 3.7 % (3.3-12.3)
[2019-02-26 05:45] LABS: Magnesium 2.9 mg/dL (1.8-2.4); Phosphorus 1.1 mg/dL (2.5-4.9); Potassium 3.9 mmol/L (3.5-5.1)
[2019-02-26] MEDS ORDERED: Meropenem 500 MG/100 ML BAG ONE (05:48)
[2019-02-26] MEDS: ENOXAPARIN 40 MG/0.4 ML SQ SCH ×3 (05:57→17:26)
[2019-02-26] MEDS ORDERED: Meropenem 1000 MG/VIAL IV SCH (06:00)
[2019-02-26 06:07] LABS: Anisocytosis 1+; Blood Morphology Comment NOTED (NOT SEEN); Platelet Estimate ADEQ; Poikilocytosis 1+; Urine White Blood Cell Casts OK
--- NOTE | 2019-02-26 06:32 | RAD REPORT ---
EXAM DESCRIPTION: RAD - Chest Single View - 02/26/2019 6:24 am CLINICAL HISTORY: Intubation, respiratory distress COMPARISON: February 25 TECHNIQUE: AP portable chest image was obtained 0621 hours . FINDINGS: Interstitial opacification has partially cleared from prior day imaging. No new lung paren chymal process. Heart and vasculature are normal. No measurable pleural effusion and no pneumothorax. No acute bony abnormality seen. ET tube and NG tube remain in good position. IMPRESSION: Partial clearing of interstitial edema or infiltrate pattern from prior day study. No pr ogressive lung parenchymal process.
[2019-02-26] MEDS ORDERED: MAGNESIUM SULFATE 1 gm IVPB 1 GM/100 ML BAG IV ONE (07:00)
[2019-02-26] MEDS ORDERED: POTASSIUM PHOS IN 0.9 % NACL 15 MMOL/250 ML BAG IV ONE (07:00)
[2019-02-26] MEDS: IPRATROPIUM BROM 0.5MG/2.5ML NEB PRN ×2 (07:47→13:45)
[2019-02-26] MEDS: ALBUTEROL 2.5 MG/3 ML NEB SOL NEB PRN ×2 (07:47→20:45)
[2019-02-26 08:02] LABS: Arterial Blood Carboxyhemoglob 1.6 % (0-1.5); Blood Gas Oxyhemoglobin 96.6 % (94-97); Blood O2 Saturation 98.8 % (92-98.5)
--- NOTE | 2019-02-26 08:29 | P.CNS ---
Date of Consult: 02/26/19 Chief Complaint: RESPIRATORY FAILURE History of Present Illness: Patient is 68 years of age well known to me with a history of terminal COPD according to the became hypoglycemic and then unresponsive a given some breathing treatments and appeared in the hospital where she was found to be in torsades de as shocked about 14 times with magnesium and potassium replacement patient is currently alert responsive cooperative hemodynamically stable she is very debilitated and continues to smoke also diabetic Allergies tetracycline [Tetracycline] Allergy (Verified 08/25/16 13:32) Rash ciprofloxacin HCl [From Cipro] Adverse Reaction (Intermediate, Verified 13:32) Rash Home Medications: Acetaminophen [Tylenol] 500 mg PO TID 02/25/19 Albuterol Inhaler [Ventolin Inhaler*] 2 puff IH QIDP PRN 02/25/19 Arformoterol Tartrate [Brovana] 1 dose IH BID 02/25/19 Baclofen 10 mg PO BEDTIME 02/25/19 Brinzolamide/Brimonidine Tart [Simbrinza 1%-0.2% Eye Drops] 1 gtt OPTH BID 02/25 Calcium Carb & Citrate/Vit D3 [Citracal + D ER Tablet] 1 tab PO DAILY 02/25/19 Cyclosporine [Restasis] 1 gtt OPTH BID 02/25/19 Duloxetine HCl 60 mg PO DAILY 02/25/19 Fluticasone Furoate [Flonase Sensimist] 1 spray IH DAILYPRN PRN 02/25/19 Furosemide 40 mg PO DAILY 02/25/19 Glycopyrrolate/Neb.accessories [Lonhala Magnair 25 Mcg Refill] 1 dose IH BID Guaifenesin [Tussin] 5 ml PO Q4HP PRN 02/25/19 Insulin Degludec [Tresiba Flextouch U-100] 8 units SQ DAILY 02/25/19 Ipratropium/Albuterol Sulfate [Iprat-Albut 0.5-3(2.5) mg/3 ml] 1 amp IH QIDP PRN 02/25/19 Lubiprostone [Amitiza*] 1 cap PO BEDTIME 02/25/19 Lubiprostone [Amitiza] 1 cap PO DAILY 02/25/19 Morphine *Extended Release* [MS Contin*] 60 mg PO TID 02/25/19 Nicotine [Nicotine Patch] 14 mg TD DAILY 02/25/19 Oxymetazoline HCl [Afrin] 2 spr IH PRN PRN 02/25/19 Prolia 60 mg IM SEECOM 02/25/19 Promethazine HCl 25 mg PO QIDP PRN 02/25/19 acetaZOLAMIDE [Diamox*] 62.5 mg PO DAILY 02/25/19 - Past Medical/Surgical History Diabetic: Yes -: HTN, hyperlipidemia, CHF -: TIA during SX -: PNA, COPD -: Breast CA -: R lumpectomy -: appy -: hysterectomy -: cartoid artery SX -: L knee SX - Social History Smoking Status: Current every day smoker Alcohol use: No CD- Drugs: No Caffeine use: No Place of Residence: Home Review of Systems is unable to be obtained Physical Examination Temp Pulse Resp BP Pulse Ox 100.8 F 68 18 146/69 H 100 02/26/19 04:00 02/26/19 06:00 02/26/19 06:00 02/26/19 06:00 02/26/19 06:00 General: Alert, Cooperative Respiratory: Diminished Cardiovascular: No edema, Regular rate/rhythm Gastrointestinal: Normal bowel sounds, Soft and benign Musculoskeletal: No clubbing, No swelling Laboratory Data (last 24 hrs) 02/25/19 08:21: PT 10.6, INR 0.89, APTT 30.5 02/25/19 08:21: WBC 15.0 H, Hgb 11.3 L, Hct 35.2 L, Plt Count 273 02/25/19 08:07: Sodium 143, Potassium 3.7, BUN 15, Creatinine 0.64, Glucose 126 H - Problems (1) Respiratory failure Current Visit: Yes Status: Acute Plan: Patient is 68 years of age with terminal COPD admitted with respiratory failure she also developed for starts and was shocked about 14 times currently on amiodarone chest x-rays abnormal possible infection possible pulmonary embolism in addition patient was also hypoglycemic continue with broad-spectrum antibiotics every change to vancomycin and meropenem continue with full-dose anticoagulation for the possibility of PE she is high risk continue with steroids have chest x-ray looks fairly clear hyperinflated plan to wean and extubate patient was hypoglycemic hypomagnesemia and white count mildly elevated elevated BNP blood gases satisfactory patient is not on any vasopressors possible wean and extubate today
[2019-02-26] MEDS: FAMOTIDINE 20 MG/2 ML VIAL IV SCH ×2 (08:40→22:32)
[2019-02-26] MEDS ORDERED: AZITHROMYCIN IV 250 MG in NA CHLORIDE 0.9% 250 ML IVPB SCH (09:00)
--- NOTE | 2019-02-26 10:16 | RAD REPORT ---
EXAM DESCRIPTION: RAD - Chest Single View - 02/25/2019 10:01 pm CLINICAL HISTORY: 68 years old and is Female; S/P PICC insertion TECHNIQUE: Frontal view of the chest. COMPARISON: No relevant prior studies available. FINDINGS: Limitations: None. Lungs: Stable pulmonary edema. Pleural space: Unremarkable. No pneumothorax. Heart: Unremarkable. No cardiomegaly. Mediastinum: Unremarkable. Bones/joints: Unremarkable. Tubes, lines and devices: The endotracheal tube terminates above the pallavi left pectineus saúl ter terminates at the cavoatrial junction. Nasogastric tube terminates in the gastric body. IMPRESSION: 1. Stable pulmonary edema. 2. Lines and tubes as above. Electronically signed by: Jennifer Caballero MD 02/25/2019 10:05 PM CDT Due to temporary technical issues with the PACS/Fluency reporting system, reports are being signed by the in house radiologist as a courtesy to ensure prompt reporting. The interpreting radiologist is f ully responsible for the content of the report.
[2019-02-26] MEDS: LORazepam 2 MG/ML VIAL IV PRN (12:33)
[2019-02-26] MEDS: D5.45NS W/KCL 20MEQ 20 MEQ/1,000 ML BAG IV SCH (12:50)
[2019-02-26 16:14] LABS: Magnesium 3.5 mg/dL (1.8-2.4)
[2019-02-26] MEDS: Meropenem 500 MG in NA CHLORIDE 0.9% 100 ML IV SCH (17:05)
--- NOTE | 2019-02-26 17:42 | P.PN ---
Subjective Date of Service: 02/26/19 Chief Complaint: RESPIRATORY FAILURE Subjective: No new changes NIGEL IS STILL ON THE VENT. SHE IS WEAK,ABLE TO RESPOND TO VERBAL COMMAND. Review of Systems is unable to be obtained General: Weakness, Malaise Physical Examination - Vital Signs Temperature: 98.5 F Blood Pressure: 129/65 Pulse: 57 Respirations: 12 Pulse Ox (%): 100 - Physical Exam General: Alert, Cachectic (ON VENT.), Severe distress Respiratory: Diminished Cardiovascular: Normal S1 S2 Assessment And Plan - Current Problems (Diagnosis) (1) End stage COPD Current Visit: Yes Status: Chronic Plan: RESPIRATORY FAILURE INTUBATED. SHE IS ON TWO ABX. AND IV STEROIDS. ON THE VENT. NOT ABLE TO BE EXTUBATED TODAY. SHE MAY END UP ON VENT AGAIN IF EXTUBATED. I TALKED TO AND SON. PATIENT HAD NOT WANTED LIFE SUPPORT FOR LONG DURATION. THEY MAY DECIDE NOT TO INTUBATE AGAIN IF SHE FAILS EXTUBATION THIS TIME. (2) Pneumonia Current Visit: Yes Status: Acute Plan: TWO IV ABX. SHE MAY NOT SURVIVE. SHE WAS FRAIL AND DYPSNEIC AT REST BEFORE THIS HAPPENED. SHE WAS STILL SMOKING AND WANTED TO CONTINUE DAMAGE IS IRREPARABLE NOW. (3) Diabetes Current Visit: Yes Status: Chronic Plan: FS COVERAGE. Qualifiers: Diabetes mellitus type: type 2 (4) Torsades de pointes Current Visit: Yes Status: Acute Plan: STAG MAGNESIUM IV GIVEN. MAG LEVEL THEY HAD TO DO CPR JUST NOW TO REVIVE HER. I HAD NURSE CALL THE FOR DNR STATUS BUT HE WANTS FULL CODE FOR NOW. AMIODARONE DRIP. MAG REPLACED.
[2019-02-26] MEDS: IPRATROPIUM BROM 0.5MG/2.5ML NEB SCH (20:44)
--- NOTE | 2019-02-26 21:42 | EKG ---
Test Date: 2019-02-25 Test Time: 21:00:57 Facilities Operations Technician: RT-O MEASUREMENT RESULTS: Intervals: Rate: 149 WV: 170 QRSD: 78 QT: 324 QTc: 510 [place]: P: 64 WV: 170 QRS: 87 T: 212 INTERPRETIVE STATEMENTS: Sinus tachycardia with premature atrial complexes Marked ST abnormality, possible inferior subendocardial injury Abnormal ECG Compared to ECG 02/25/2019 07:56:11 Atrial premature complex(es) now present Sinus rhythm no longer present Right-axis deviation no longer present ST (T wave) deviation still present Electronically Signed On 02-26-19 21:38:54 CDT by Wilberto Dietrich
[2019-02-26] MEDS ORDERED: VANCOMYCIN 750 MG in NA CHLORIDE 0.9% 150 ML IVPB SCH (22:00)
[2019-02-27] MEDS: INSULIN -REGULAR HUMAN 50 UNIT/0.5 ML ML SQ SCH ×4 (00:23→17:20)
[2019-02-27] MEDS: METHYLPREDNISOLONE 40 MG INJ IV SCH ×3 (00:23→17:17)
[2019-02-27] MEDS: Meropenem 500 MG in NA CHLORIDE 0.9% 100 ML IV SCH ×2 (00:24→08:48)
[2019-02-27] MEDS: IPRATROPIUM BROM 0.5MG/2.5ML NEB SCH ×4 (02:00→20:05)
[2019-02-27] MEDS: D5.45NS W/KCL 20MEQ 20 MEQ/1,000 ML BAG IV SCH ×2 (02:11→18:50)
[2019-02-27] MEDS: METOPROLOL TARTRATE 5 MG/5 ML INJ IV SCH ×6 (02:11→22:13)
[2019-02-27] MEDS: PROPOFOL 1,000 MG/100 ML VIAL IV PRN (05:18)
[2019-02-27] MEDS: ENOXAPARIN 40 MG/0.4 ML SQ SCH ×2 (05:18→17:17)
[2019-02-27 05:32] LABS: Absolute Lymphocytes (CBC) 0.5 K/uL (0.7-4.9); Absolute Monocytes 0.3 K/uL (0.1-1.3); Absolute Neutrophil 15.9 K/uL (1.8-8.0); Basophils % 0.5 % (0-1.3); Hematocrit 31.5 % (36.0-45.0); Lymphocytes % 2.8 % (15.3-44.8); MPV 10.9 fL (7.6-11.3); RBC Red Blood Cell Count 3.36 M/uL (3.86-4.86)
[2019-02-27 05:44] LABS: Magnesium 3.1 mg/dL (1.8-2.4); Phosphorus 3.3 mg/dL (2.5-4.9); Potassium 4.6 mmol/L (3.5-5.1)
--- NOTE | 2019-02-27 07:20 | RAD REPORT ---
EXAM DESCRIPTION: RAD - Chest Single View - 02/27/2019 6:31 am CLINICAL HISTORY: Intubation, respiratory distress COMPARISON: February 26 TECHNIQUE: AP portable chest image was obtained 0624 hours . FINDINGS: ET tube and OG/NG tube in good position. Chronic interstitial lung disease is present acce ntuated by shallow inspiration. There has been some further clearing of the interstitial opacities pr eviously seen. No progressive lung parenchymal process. Heart and vasculature are normal. No measurab le pleural effusion and no pneumothorax. No acute bony abnormality seen. No acute aortic findings stacey pected. IMPRESSION: Extensive chronic interstitial lung disease showing some further clearing from prior day imaging. ET tube and gastric tube in good position.
[2019-02-27] MEDS: FAMOTIDINE 20 MG/2 ML VIAL IV SCH ×2 (08:48→20:21)
[2019-02-27] MEDS: IPRATROPIUM BROM 0.5MG/2.5ML NEB PRN (10:30)
[2019-02-27] MEDS: ALBUTEROL 2.5 MG/3 ML NEB SOL NEB PRN (10:30)
[2019-02-27] MEDS: FENTANYL CITR 100 MCG/2 ML IV PRN ×2 (10:57→20:21)
[2019-02-27 11:36] LABS: Arterial Blood Carboxyhemoglob 1.5 % (0-1.5); Blood Gas Oxyhemoglobin 96.2 % (94-97); Blood O2 Saturation 98.5 % (92-98.5)
[2019-02-27 12:26] LABS: Arterial Blood Carboxyhemoglob 1.2 % (0-1.5); Blood Gas Oxyhemoglobin 92.5 % (94-97); Blood O2 Saturation 94.6 % (92-98.5)
--- NOTE | 2019-02-27 12:45 | P.PN ---
Subjective Date of Service: 02/27/19 Chief Complaint: RESPIRATORY FAILURE Subjective: Improving (Patient is clinically stable tolerate the spontaneous breathing trial of 1 extubated developed post extubation respiratory distress placed on BiPAP now do not resuscitate order) Review of Systems General: Weakness Respiratory: Shortness of Breath Physical Examination - Vital Signs Temperature: 99.3 F Blood Pressure: 145/78 Pulse: 65 Respirations: 24 Pulse Ox (%): 100 - Physical Exam General: Alert, Cooperative HEENT: Atraumatic Neck: Supple Respiratory: Diminished, Expiratory wheezes Cardiovascular: No edema, Normal pulses Assessment & Plan - Problems (Diagnosis) (1) Respiratory failure Current Visit: Yes Status: Acute Plan: Patient is 68 years of age admitted with a respiratory failure and arrhythmia extubated developed some respiratory distress placed on BiPAP agree we DNR and hospice care Pseudomonas isolated from the sputum chest x-ray shows COPD changes change to cefepime Dc meropenem Dc vancomycin consider tube feeds prognosis very poor due to progressive decline blood pressure is mildly elevated Qualifiers: Respiratory failure complication: unspecified whether with hypoxia or hypercapnia
[2019-02-27] MEDS ORDERED: EPINEPHrine 1 MG/10 ML SYR IV ONE (14:28)
--- NOTE | 2019-02-27 17:34 | P.PN ---
Subjective Date of Service: 02/27/19 Chief Complaint: RESPIRATORY FAILURE Subjective: C/O voiced NIGEL IS STILL ON THE VENT. SHE IS WEAK,ABLE TO RESPOND TO VERBAL COMMAND. NIGEL HAS END STAGE COPD. SHE IS ABLE TO BREATH WITH BIPAP, SHE IS NOT EXTUBATED. FAMILY HAS DECIDED FOR DNR AND WANT TO TAKE HER HOME IF SHE IS STABLE TO KEEP HER ON HOSPICE AT HOME. Review of Systems General: Weakness, Malaise Respiratory: Shortness of Breath Physical Examination - Vital Signs Temperature: 98.5 F Blood Pressure: 154/73 Pulse: 71 Respirations: 29 Pulse Ox (%): 99 - Physical Exam General: Oriented x1, Cachectic, Severe distress Respiratory: Diminished Cardiovascular: Normal pulses, Regular rate/rhythm Assessment And Plan - Current Problems (Diagnosis) (1) End stage COPD Current Visit: Yes Status: Chronic Plan: RESPIRATORY FAILURE INTUBATED. SHE IS ON TWO ABX. AND IV STEROIDS. ON THE VENT. NOT ABLE TO BE EXTUBATED TODAY. SHE MAY END UP ON VENT AGAIN IF EXTUBATED. I TALKED TO AND SON. PATIENT HAD NOT WANTED LIFE SUPPORT FOR LONG DURATION. THEY MAY DECIDE NOT TO INTUBATE AGAIN IF SHE FAILS EXTUBATION THIS TIME. BIPAP FOR NOW. DC HOME WITH HOSPICE IF SHE IS ABLE TO BE STABILIZED. I OFFERED INPATIENT HOSPICE BUT FAMILY IS NOT READY FOR IT. (2) Pneumonia Current Visit: Yes Status: Acute Plan: TWO IV ABX. SHE MAY NOT SURVIVE. SHE WAS FRAIL AND DYPSNEIC AT REST BEFORE THIS HAPPENED. SHE WAS STILL SMOKING AND WANTED TO CONTINUE DAMAGE IS IRREPARABLE NOW. (3) Diabetes Current Visit: Yes Status: Chronic Plan: FS COVERAGE. Qualifiers: Diabetes mellitus type: type 2 (4) Torsades de pointes Current Visit: Yes Status: Acute Plan: STAG MAGNESIUM IV GIVEN. MAG LEVEL THEY HAD TO DO CPR JUST NOW TO REVIVE HER. I HAD NURSE CALL THE FOR DNR STATUS BUT HE WANTS FULL CODE FOR NOW. AMIODARONE DRIP. MAG REPLACED.
[2019-02-27] MEDS: CEFEPIME/SWI 1gm 10 ML IV SCH (20:21)
[2019-02-27] MEDS ORDERED: CEFEPIME 1 GM/VIAL IV SCH (21:00)
[2019-02-28] MEDS: METHYLPREDNISOLONE 40 MG INJ IV SCH ×3 (01:25→17:58)
[2019-02-28] MEDS: METOPROLOL TARTRATE 5 MG/5 ML INJ IV SCH ×6 (02:08→22:00)
[2019-02-28] MEDS: IPRATROPIUM BROM 0.5MG/2.5ML NEB SCH ×4 (02:10→20:00)
--- NOTE | 2019-02-28 02:10 | PN ---
Date of Progress Note: 02/25/2019 Ms. Meeks had been seen by Dr. Blandon. She had came in with respiratory failure, was having an episode of torsade de pointe. She was intubated. Her main problem otherwise is severe COPD. Echoca rdiogram was still pending. Electrolytes are better today. Her magnesium is 2.7, potassium of 3.9, troponin of 0.07 consistent with hypoxia. Her BNP is 10,053. No further episodes of torsade overnig ht, remains intubated. We will see what the echo shows, maintain electrolyte balance. Will be avail able for further questions if the need arises. PATRICIA/LENY Voice ID: [id number] Report ID: [id number]
[2019-02-28] MEDS: IPRATROPIUM BROM 0.5MG/2.5ML NEB PRN (05:10)
[2019-02-28] MEDS: ALBUTEROL 2.5 MG/3 ML NEB SOL NEB PRN ×2 (05:10→07:48)
[2019-02-28 05:32] LABS: Phosphorus 2.6 mg/dL (2.5-4.9)
[2019-02-28 05:34] LABS: Potassium 5.6 mmol/L (3.5-5.1)
[2019-02-28] MEDS: ENOXAPARIN 40 MG/0.4 ML SQ SCH ×2 (05:53→17:59)
[2019-02-28] MEDS: ALPRAZOLAM 0.25 MG TABLET PO PRN ×2 (05:55→20:28)
[2019-02-28] MEDS: INSULIN -REGULAR HUMAN 50 UNIT/0.5 ML ML SQ SCH ×4 (05:55→18:06)
[2019-02-28] MEDS: NACHLORIDE 0.45% 1,000 ML IV SCH (05:56)
[2019-02-28] MEDS: FAMOTIDINE 20 MG/2 ML VIAL IV SCH (08:24)
--- NOTE | 2019-02-28 08:27 | RAD REPORT ---
EXAM DESCRIPTION: RAD - Chest Single View - 02/28/2019 6:51 am CLINICAL HISTORY: intubated Chest pain. COMPARISON: Chest Single View dated 02/27/2019; Chest Single View dated 02/26/2019; Chest Single View d ated 02/25/2019; Chest Single View dated 02/25/2019 FINDINGS: Portable technique limits examination quality. Endotracheal tube is not clearly seen on this examination, and the patient may have been extubated. E nteric tube also appears to been removed. Left-sided PICC line has tip in the SVC. The lungs appear e mphysematous. The heart is mildly prominent size.
[2019-02-28] MEDS: CEFEPIME/SWI 1gm 10 ML IV SCH ×2 (08:34→20:28)
[2019-02-28] MEDS: LORazepam 2 MG/ML VIAL IV PRN (09:35)
--- NOTE | 2019-02-28 12:39 | P.PN ---
Subjective Date of Service: 02/28/19 Chief Complaint: RESPIRATORY FAILURE Subjective: Improving (Patient is doing much better she is currently on oxygen alert responsive cooperative) Review of Systems General: Weakness Respiratory: Shortness of Breath Physical Examination - Vital Signs Temperature: 97.8 F Blood Pressure: 130/77 Pulse: 65 Respirations: 30 Pulse Ox (%): 98 - Physical Exam General: Alert, Oriented x3 Neck: Without JVD or thyroid abnormality Respiratory: Clear to auscultation bilaterally, Diminished, Expiratory wheezes Cardiovascular: No edema, Regular rate/rhythm Assessment & Plan - Problems (Diagnosis) (1) Respiratory failure Current Visit: Yes Status: Acute Plan: Patient has terminal COPD is doing much better Pseudomonas isolated from the sputum continue with antibiotics possibly pneumonia chest x-ray shows some abnormality in the left upper zone labs reviewed white count is still elevated may be side effect of steroid medications reviewed advance diet with side physical therapy patient referred to hospice care Qualifiers: Respiratory failure complication: unspecified whether with hypoxia or hypercapnia
--- NOTE | 2019-02-28 18:25 | P.PN ---
Subjective Date of Service: 02/28/19 Chief Complaint: RESPIRATORY FAILURE NIGEL IS STILL ON THE VENT. SHE IS WEAK,ABLE TO RESPOND TO VERBAL COMMAND. NIGEL HAS END STAGE COPD. SHE IS ABLE TO BREATH WITH BIPAP, SHE IS NOT EXTUBATED. FAMILY HAS DECIDED FOR DNR AND WANT TO TAKE HER HOME IF SHE IS STABLE TO KEEP HER ON HOSPICE AT HOME. NIGEL IS TERMINAL, HARD TO BE AROUSED. SHE NEEDS BIPAP TO ABLE TOBREATH. AND SON HAVE DECIDED TO GET HER HOME ON HOSPICE IN AM. Physical Examination - Vital Signs Temperature: 97.8 F Blood Pressure: 116/80 Pulse: 63 Respirations: 16 Pulse Ox (%): 99 - Physical Exam General: Moderate distress, Unresponsive Respiratory: Diminished Assessment And Plan - Current Problems (Diagnosis) (1) End stage COPD Current Visit: Yes Status: Chronic Plan: RESPIRATORY FAILURE INTUBATED. SHE IS ON TWO ABX. AND IV STEROIDS. ON THE VENT. NOT ABLE TO BE EXTUBATED TODAY. SHE MAY END UP ON VENT AGAIN IF EXTUBATED. I TALKED TO AND SON. PATIENT HAD NOT WANTED LIFE SUPPORT FOR LONG DURATION. THEY MAY DECIDE NOT TO INTUBATE AGAIN IF SHE FAILS EXTUBATION THIS TIME. BIPAP FOR NOW. DC HOME WITH HOSPICE IF SHE IS ABLE TO BE STABILIZED. I OFFERED INPATIENT HOSPICE BUT FAMILY IS NOT READY FOR IT. DNR SIGNED. DC PER ABOVE. (2) Pneumonia Current Visit: Yes Status: Acute Plan: TWO IV ABX. SHE MAY NOT SURVIVE. SHE WAS FRAIL AND DYPSNEIC AT REST BEFORE THIS HAPPENED. SHE WAS STILL SMOKING AND WANTED TO CONTINUE DAMAGE IS IRREPARABLE NOW. (3) Diabetes Current Visit: Yes Status: Chronic Plan: FS COVERAGE. Qualifiers: Diabetes mellitus type: type 2 (4) Torsades de pointes Current Visit: Yes Status: Acute Plan: STAG MAGNESIUM IV GIVEN. MAG LEVEL THEY HAD TO DO CPR JUST NOW TO REVIVE HER. I HAD NURSE CALL THE FOR DNR STATUS BUT HE WANTS FULL CODE FOR NOW. AMIODARONE DRIP. MAG REPLACED.
[2019-02-28] MEDS: FENTANYL CITR 100 MCG/2 ML IV PRN (19:04)
[2019-02-28] MEDS ORDERED: ARFORMOTEROL TARTRATE 15 MCG/2 ML VIAL.NEB NEB SCH (20:00)
[2019-02-28] MEDS ORDERED: LORazepam 2 MG/ML VIAL IV PRN (20:29)
[2019-03-01] MEDS: NACHLORIDE 0.45% 1,000 ML IV SCH (00:06)
[2019-03-01] MEDS: METHYLPREDNISOLONE 40 MG INJ IV SCH (00:06)
[2019-03-01] MEDS: INSULIN -REGULAR HUMAN 50 UNIT/0.5 ML ML SQ SCH ×2 (00:07→06:05)
[2019-03-01 00:20] VITALS: O2SAT 100
[2019-03-01] MEDS: METOPROLOL TARTRATE 5 MG/5 ML INJ IV SCH ×2 (02:00→06:00)
[2019-03-01] MEDS: IPRATROPIUM BROM 0.5MG/2.5ML NEB SCH (02:00)
[2019-03-01 05:48] VITALS: BMI 20.1
[2019-03-01] MEDS: ENOXAPARIN 40 MG/0.4 ML SQ SCH (06:05)
--- NOTE | 2019-03-01 07:55 | RAD REPORT ---
EXAM DESCRIPTION: Yifan Single View03/01/2019 7:34 am CLINICAL HISTORY: Chest pain COMPARISON: February 29, 2000 FINDINGS: An endotracheal tube is not visualized within the field of view Mild worsening in diffuse bilateral pulmonary opacities Heart is mildly enlarged. A PICC line is in place Small right pleural effusion suspected IMPRESSION: Mild worsening in diffuse bilateral pulmonary opacities may represent pulmonary edema or pneumonia superimposed over chronic changes
--- NOTE | 2019-03-01 08:10 | ECHO ---
HEIGHT: 5 ft 0 in WEIGHT: 103 lb 0 oz DATE OF STUDY: 02/28/[address]: Jarred Blandon MD 2-DIMENSIONAL: YES M.MODE: YES DOPPLER: YES COLOR FLOW: YES TDS: NO PORTABLE: NO DEFINITY: NO BUBBLE STUDY: NO DIAGNOSIS: VENTRICULAR TACHYCARDIA CARDIAC HISTORY: CATHERIZATION: NO SURGERY: NO PROSTHETIC VALVE: NO PACEMAKER: NO MEASUREMENTS (cm) DIASTOLIC (NORMALS) SYSTOLIC (NORMALS) IVSd 0.9 (0.6-1.2) LA Diam 3.4 (1.9-4.0) LVEF 57% LVIDd 4.8 (3.5-5.7) LVIDs 3.3 (2.0-3.5) %FS 30% LVPWd 1.1 (0.6-1.2) Ao Diam 2.1 (2.0-3.7) 2 DIMENSIONAL ASSESSMENT: RIGHT ATRIUM: DILATED LEFT ATRIUM: DILATED RIGHT VENTRICLE: NORMAL LEFT VENTRICLE: NORMAL TRICUSPID VALVE: NORMAL MITRAL VALVE: MITRAL ANNULAR CALCIFICATION PULMONIC VALVE: NORMAL AORTIC VALVE: STENOSIS, 3 LEAFLET PERICARDIAL EFFUSION: NONE AORTIC ROOT: NORMAL LEFT VENTRICULAR WALL MOTION: NORMAL. DOPPLER/COLOR FLOW: SEVERE AORTIC STENOSIS. PEAK/MEAN GRADIENT 36/19. ESTIMATED AORTIC VALVE AREA 0.9 CM SQUARED. MODERATE AORTIC REGURGITATION. MILD MITRAL REGURGITATION AND TRICUSPID REGURGITATION. ESTIMATED RIGHT VENTRICULAR SYSTOLIC PRESSURE 58 MMHG (MODERATE PULMONARY HYPERTENSION). COMMENTS: NORMAL LEFT VENTRICULAR EJECTION FRACTION. MODERATE PULMONARY HYPERTENSION. DILATED LEFT ATRIUM AND RIGHT ATRIUM. SEVERE AORTIC STENOSIS. MODERATE AORTIC REGURGITATION. MILD MITRAL AND TRICUSPID REGURGITATION. TECHNOLOGIST: SEA ENRIQUEZ
[2019-03-01 09:35] VITALS: BP 118/72; TEMP 98.4
--- NOTE | 2019-03-01 21:45 | P.DS ---
Admission Date: 02/25/19 Discharge Date: 03/01/19 Disposition: HOSPICE-HOME Discharge Condition: SERIOUS Reason for Admission: RESPIRATORY FAILURE - Problems (1) End stage COPD Status: Chronic (2) Pneumonia Status: Acute (3) Diabetes Status: Chronic Qualifiers: Diabetes mellitus type: type 2 (4) Torsades de pointes Status: Acute Brief History of Present Illness: NIGEL IS AN END STAGE COPD PATIENT WHO WAS BARELY SURVIVING WITH OXYGEN AND REPEATED USE OF STEROIDS AND ANTIBIOTICS FOR RECURRENT BRONCHITIS AND COPD EXACERBATION, COMES AFTER BRIEF DISTRESS AND OBTUNDATION, INTUBATED IN THE FIELD BROUGHT TO ER. ABOUT 3 MTHS AGO I HAD RECOMMENDED HOSPICE TO HER THROUGH BUT HE SAID NO THAT TIME THAT SHE IS NOT READY FOR IT. MRS. TREADWELL IS AN END STAGE COPD PATIENT WHO IS GETTING WORSE EXPECTED. SHE IS SURVIVING WITH BIPAP BUT IS VERY WEAK, SEVERELY HYPOXIC, SEVERELY SWOLLEN AND TERMINAL WITH LIFE LESS THAN A WEEK. HAS AGREED TO PLACE HER ON HOSPICE. SHE IS DISCHARGED IN POOR CONDITION WITH THE [facility]. Vital Signs/Physical Exam: Temp Pulse Resp BP Pulse Ox 98.4 F 61 17 118/72 100 03/01/19 08:00 03/01/19 09:00 03/01/19 09:00 03/01/19 09:00 03/01/19 09:00 Laboratory Data at Discharge: WBC 16.8 K/uL (4.3-10.9) H D 02/27/19 05:00 Hgb 10.0 g/dL (12.0-15.0) L 02/27/19 05:00 Hct 31.5 % (36.0-45.0) L 02/27/19 05:00 Plt Count 256 K/uL (152-406) 02/27/19 05:00 PT 10.6 SECONDS (9.5-12.5) 02/25/19 08:21 INR 0.89 02/25/19 08:21 APTT 30.5 SECONDS (24.3-36.9) 02/25/19 08:21 Sodium 133 mmol/L (136-145) L 02/28/19 05:05 Potassium 5.6 mmol/L (3.5-5.1) H* 02/28/19 05:05 BUN 32 mg/dL (7-18) H 02/28/19 05:05 Creatinine 0.84 mg/dL (0.55-1.3) 02/28/19 05:05 Glucose 195 mg/dL (74-106) H 02/28/19 05:05 Phosphorus 2.6 mg/dL (2.5-4.9) 02/28/19 05:05 Magnesium 3.0 mg/dL (1.8-2.4) H 02/28/19 05:05 Troponin I 0.07 ng/mL (0.0-0.045) H 02/25/19 16:48 Home Medications: Acetaminophen [Tylenol] 500 mg PO TID 02/25/19 Baclofen 10 mg PO BEDTIME 02/25/19 Brinzolamide/Brimonidine Tart [Simbrinza 1%-0.2% Eye Drops] 1 gtt OPTH BID 02/25 Cyclosporine [Restasis] 1 gtt OPTH BID 02/25/19 Fluticasone Furoate [Flonase Sensimist] 1 spray IH DAILYPRN PRN 02/25/19 Guaifenesin [Tussin] 5 ml PO Q4HP PRN 02/25/19 Ipratropium/Albuterol Sulfate [Iprat-Albut 0.5-3(2.5) mg/3 ml] 1 amp IH QIDP PRN 02/25/19 Morphine *Extended Release* [MS Contin*] 60 mg PO TID 02/25/19 Nicotine [Nicotine Patch] 14 mg TD DAILY 02/25/19 Promethazine HCl 25 mg PO QIDP PRN 02/25/19
== END 2019-03-01 09:30 | disposition hospice, home (50) | DRG 208 ==
LOC: ER 07:45 → ERHOLD 09:50 → 3RD-ICU 12:12
PROVIDERS: ADMIT Internal Medicine; ATTEND Internal Medicine
PROC: 5A1945Z Respiratory Ventilation, 24-96 Consecutive Hours (ICD-10-PCS; principal; 2019-02-25)
PROC: 5A12012 Performance of Cardiac Output, Single, Manual (ICD-10-PCS; 2019-02-25)
PROC: 02HV33Z Insertion of Infusion Device into Superior Vena Cava, Percutaneous Approach (ICD-10-PCS; 2019-02-25)
DX: J96.02 Acute respiratory failure with hypercapnia (principal); J18.9 Pneumonia, unspecified organism; J44.0 Chronic obstructive pulmonary disease with (acute) lower respiratory infection; J44.1 Chronic obstructive pulmonary disease with (acute) exacerbation; R64 Cachexia; Z68.1 Body mass index [BMI] 19.9 or less, adult; Z51.5 Encounter for palliative care; Z66 Do not resuscitate; I49.9 Cardiac arrhythmia, unspecified; F17.210 Nicotine dependence, cigarettes, uncomplicated; I11.0 Hypertensive heart disease with heart failure; I50.9 Heart failure, unspecified; Z99.81 Dependence on supplemental oxygen; E11.649 Type 2 diabetes mellitus with hypoglycemia without coma; E83.42 Hypomagnesemia; Z79.4 Long term (current) use of insulin
CPT/HCPCS: 36415; 51702; 70450; 71045; 80048; 82805; 82962; 83735; 83880; 84100; 84132; 84484; 85025; 85049; 85610; 85730; 87040; 87070; 87077; 87186; 87205; 93005; 93306; 94002; 94003; 94640; 94660; 96372; 99291; 99292; J0171; J0282; J0456; J0692; J0696; J1650; J2185; J2704; J2920; J2930; J3010; J3475; J7060; J7605